=== PATIENT | female | born 1990 | race Two or more races ===

== ENCOUNTER 2022-04-12 16:06 | Emergency (ER) | payer OTHER ==
[~2022-04-12] VITALS: Ht 152.4 cm; Wt 64.4 kg
[2022-04-12 16:20] VITALS: BP 128/79
--- NOTE | 2022-04-12 16:20 | NUR ---
LEFT SHOULDER PAIN X 3 WEEKS,WORSE X 3 DAYS,S/P GLF 3 WEEKS AGO
--- NOTE | 2022-04-12 16:24 | NUR ---
PB BAL, WITH PT FOR EVAL.
[2022-04-12] MEDS ORDERED: KETOROLAC TROMETHAMINE INJ 30 MG/ML VIAL ONE (16:34)
[2022-04-12] MEDS: KETOROLAC TROMETHAMINE INJ 60 MG/2 ML VIAL IM ONE (16:38)
[2022-04-12] MEDS ORDERED: NAPR-1009 PO (17:13)
--- NOTE | 2022-04-12 17:25 | NUR ---
Patient discharged to home in stable condition. Written and verbal after care instructions given. Patient verbalizes understanding of instruction.
== END 2022-04-12 17:26 | disposition home or self-care (01) ==
LOC: ER 16:16
DX: M25.512 Pain in left shoulder (principal); Z60.2 Problems related to living alone; W18.39XA Other fall on same level, initial encounter; Y93.89 Activity, other specified; Y92.89 Other specified places as the place of occurrence of the external cause; Y99.8 Other external cause status
CPT/HCPCS: 99283; 96372; 73030; J1885